=== PATIENT | male | born 1980 | race Caucasian/White ===

== ENCOUNTER 2017-05-04 21:08 | Emergency (ER) | payer OTHER ==
[~2017-05-04] VITALS: Ht 182.9 cm; Wt 100.0 kg
[2017-05-04 21:08] VITALS: BP 154/75
[2017-05-04] MEDS ORDERED: ACET325T9 PO (21:48)
[2017-05-04] MEDS ORDERED: NAPR-683 PO (21:48)
[2017-05-04] MEDS ORDERED: CEPH-264 PO (21:48)
--- NOTE | 2017-05-04 21:48 | PHYS DOC ---
Past History Past Medical History: No Pertinent History Additional Past Surgical Histo: orthoscopic surgery Smoking: Non-smoker Alcohol Use: None Drug Use: None Adult General Chief Complaint Chief Complaint: wound check HPI HPI he is a pleasant 36-year-old male who had orthoscopic right hip surgery within the last week. He is concerned that the lower incision site may be infected. Over the last 4 days he has noted increased redness with localized swelling on the lower incision site. Today while pushing on the wound he expressed a small amount of fluid. He also admits she's had some mild myalgias, low-grade subjective fever and mild headache. He denies any rash, denies any joint pain, denies any shortness of breath, chest pain, abdominal pain. Patient says he utilized hydrogen peroxide to cleanse the wound only to cause himself more discomfort and localized redness. Review of Systems Review of Systems Constitutional: Subjective fevers and chills Eyes: Denies change in visual acuity, redness, or eye pain [] HENT: Denies nasal congestion or sore throat [] Respiratory: Denies cough or shortness of breath [] Cardiovascular: No additional information not addressed in HPI [] GI: Denies abdominal pain, nausea, vomiting, bloody stools or diarrhea [] : Denies dysuria or hematuria [] Musculoskeletal: Denies back pain or joint pain [] Integument: Denies rash or skin lesions does have some localized redness and swelling around the incision site of the lower area of the arthroscopic hip surgery Neurologic: Mild frontal headache not worse of life and sudden onset no focal weakness or sensory changes Endocrine: Denies polyuria or polydipsia [] All other systems were reviewed and found to be within normal limits, except as documented in this note. Current Medications Current Medications Current Medications Medications (Trade) Dose Ordered Sig/Edmar Start Time Stop Time Status Last Admin Dose Admin Cephalexin HCl (Keflex) 500 mg 1X ONCE 05/04/17 21:45 18 21:46 UNV Ibuprofen (Motrin) 400 mg 1X ONCE 05/04/17 21:45 18 21:46 UNV Physical Exam Physical Exam Other vital signs recorded on the chart patient noted to be mildly hypertensive Constitutional: Well developed, well nourished, no acute distress, non-toxic appearance. [][] Skin: Warm, dry, there is a small incision site of the lateral right thigh with mild erythema minimal if any induration minimal soft tissue swelling there is no active discharge from the wound. There is no evidence of abscess around the wound itself. There is no lymphadenitis or soft tissue swelling consistent with an abscess Extremities: No tenderness, no cyanosis, no clubbing, ROM intact, no edema. [] Neurologic: Alert and oriented X 3, normal motor function, normal sensory function, no focal deficits noted. [] Psychologic: Affect normal, judgement normal, mood normal. [] EKG EKG [] Radiology/Procedures Radiology/Procedures [] Course & Med Decision Making Course & Med Decision Making Pertinent Labs and Imaging studies reviewed. (See chart for details) []he presents with a small area of erythema around it well-healing incision site. Based on his description patient may have expressed some serous fluid/ early purulent discharge from the wound edges. There is no obvious abscess that I can drain at this time. Patient exhibits minimal induration and soft tissue swelling. The induration and soft tissue swelling may actually be associated with the hydrogen peroxide use to treat his skin. We talked about proper wound management. Because of his flulike symptoms and sick contacts at home I will screen and flu to ensure that he is not suffering from flu as the cause of his systemic symptoms of mild headache myalgias and low-grade subjective fevers. Patient has no other signs of infection. patient's flu swab Was negative at 10:10 PM patient tolerated oral antibiotics and dressing the wound. Impression: post operative wound infection. no abscess. discharge: I've spoken with the patient and/or caregivers. I've explained the patient's condition, diagnosis and treatment plan based on information available to me at this time. I've answered the patient's and/or caregivers questions and addressed any concerns. The patient and/or caregivers have a good understanding the patient's diagnosis, condition and treatment plan as can be expected at this point. Vital signs have been stabilized. The patient's condition is stable for discharge from the emergency department. The patient will pursue further outpatient evaluation with her primary care provider or other designated consulting physician as outlined in the discharge instructions. Patient and/or caregivers are agreeable to this plan of care and follow-up instructions have been explained in detail. The patient and/or caregivers have received these instructions in written format and expressed understanding of these discharge instructions. The patient and her caregivers are aware that if any significant change in condition or worsening of symptoms should prompt him to immediately return to this of the closest emergency department. If an emergent department is not readily available I would encourage him to call 911. Dragon Disclaimer Dragon Disclaimer This electronic medical record was generated, in whole or in part, using a voice recognition dictation system. Departure Departure: Impression: Primary Impression: Cellulitis Disposition: HOME, SELF-CARE Condition: STABLE Referrals: WAQAS SHAH MD (PCP) Patient Instructions: Cellulitis Additional Instructions: discharge: I've spoken with the patient and/or caregivers. I've explained the patient's condition, diagnosis and treatment plan based on information available to me at this time. I've answered the patient's and/or caregivers questions and addressed any concerns. The patient and/or caregivers have a good understanding the patient's diagnosis, condition and treatment plan as can be expected at this point. Vital signs have been stabilized. The patient's condition is stable for discharge from the emergency department. The patient will pursue further outpatient evaluation with her primary care provider or other designated consulting physician as outlined in the discharge instructions. Patient and/or caregivers are agreeable to this plan of care and follow-up instructions have been explained in detail. The patient and/or caregivers have received these instructions in written format and expressed understanding of these discharge instructions. The patient and her caregivers are aware that if any significant change in condition or worsening of symptoms should prompt him to immediately return to this of the closest emergency department. If an emergent department is not readily available I would encourage him to call 911. Scripts Acetaminophen (TYLENOL) 325 Mg Tablet 1-2 TAB PO QID, #30 TAB 0 Refills Prov: ENRIQUE BOYD MD 05/04/17 Naproxen (NAPROSYN) 500 Mg Tablet 1 TAB PO BID, #20 TAB 1 Refill Prov: ENRIQUE BOYD MD 05/04/17 Cephalexin (KEFLEX) 500 Mg Capsule 500 MG PO QID for 10 Days, #40 CAP Prov: ENRIQUE BOYD MD 05/04/17 ENRIQUE BOYD MD May 04, 2017 21:48
[2017-05-04] MEDS ORDERED: CEPHALEXIN 250 MG CAPSULE PO ONE (22:00)
[2017-05-04] MEDS ORDERED: IBUPROFEN 400 MG TABLET. PO ONE (22:00)
[2017-05-04 22:09] LABS: INFLUENZA A PATIENT NEGATIVE (NEGATIVE); INFLUENZA B PATIENT NEGATIVE (NEGATIVE)
== END 2017-05-04 22:50 | disposition home or self-care (01) ==
LOC: ER 21:08
DX: T18.4XXA Foreign body in colon, initial encounter (principal); L03.115 Cellulitis of right lower limb; M79.1 Myalgia; R50.9 Fever, unspecified; Z98.890 Other specified postprocedural states
CPT/HCPCS: 87804; 99284

== ENCOUNTER 2018-04-16 18:25 | Emergency (ER) | payer OTHER ==
[~2018-04-16] VITALS: Ht 180.3 cm; Wt 86.2 kg
[~2018-04-16 18:25] MED LIST: ACET325T9 PO; CEPH-264 PO; NAPR-683 PO
--- NOTE | 2018-04-16 18:49 | ED.ADGEN ---
Past History Past Medical History: Other Past Surgical History: Other Additional Past Surgical Histo: orthoscopic surgery Smoking: Non-smoker Alcohol Use: Occasionally Drug Use: None Adult General Chief Complaint Chief Complaint headache HPI HPI 37 years old male presented to the emergency department with headache described as a throbbing frontal, radiates to the rest of the scalp associate with nausea and photophobia started at 11 AM gradually, similar to the previous headaches he had, no trauma Review of Systems Review of Systems Constitutional: Denies fever or chills [] Eyes: Denies change in visual acuity, redness, or eye pain [] HENT: Denies nasal congestion or sore throat [] Respiratory: Denies cough or shortness of breath [] Cardiovascular: No additional information not addressed in HPI [] GI: Denies abdominal pain, nausea, vomiting, bloody stools or diarrhea [] : Denies dysuria or hematuria [] Musculoskeletal: Denies back pain or joint pain [] Integument: Denies rash or skin lesions [] Neurologic: Denies focal weakness or sensory changes [] Endocrine: Denies polyuria or polydipsia [] All other systems were reviewed and found to be within normal limits, except as documented in this note. Current Medications Current Medications Current Medications Medications (Trade) Dose Ordered Sig/Edmar Start Time Stop Time Status Last Admin Dose Admin Diphenhydramine HCl (Benadryl) 25 mg 1X ONCE 04/16/18 19:00 04/16/18 19:01 DC 04/16/18 18:59 25 MG Ketorolac Tromethamine (Toradol Im) 60 mg 1X ONCE 04/16/18 19:00 04/16/18 19:01 DC 04/16/18 18:58 60 MG Prochlorperazine Edisylate (Compazine) 10 mg 1X ONCE 04/16/18 19:00 04/16/18 19:01 DC 04/16/18 18:59 10 MG Allergies Allergies Allergies Coded Allergies Type Severity Reaction Last Updated Verified No Known Drug Allergies 05/04/17 No Physical Exam Physical Exam Constitutional: Well developed, well nourished, no acute distress, non-toxic appearance. [] HENT: Normocephalic, atraumatic, bilateral external ears normal, oropharynx moist, no oral exudates, nose normal. [] Eyes: PERRLA, EOMI, conjunctiva normal, no discharge. [] Neck: Normal range of motion, no tenderness, supple, no stridor. [] Cardiovascular:Heart rate regular rhythm, no murmur [] Lungs & Thorax: Bilateral breath sounds clear to auscultation [] Abdomen: Bowel sounds normal, soft, no tenderness, no masses, no pulsatile masses. [] Skin: Warm, dry, no erythema, no rash. [] Back: No tenderness, no CVA tenderness. [] Extremities: No tenderness, no cyanosis, no clubbing, ROM intact, no edema. [] Neurologic: Alert and oriented X 3, normal motor function, normal sensory function, no focal deficits noted. [] Psychologic: Affect normal, judgement normal, mood normal. [] Current Patient Data Vital Signs Vital Signs Date Time Temp Pulse Resp B/P (MAP) Pulse Ox O2 Delivery O2 Flow Rate FiO2 04/16/18 18:27 98.3 62 20 98 EKG EKG [] Radiology/Procedures Radiology/Procedures [] Course & Med Decision Making Course & Med Decision Making feels better , dc home , [] Final Impression Final Impression [] Problems: (1) Headache Qualifiers: Qualified Codes: G44.209 - Tension-type headache, unspecified, not intractable Dragon Disclaimer Dragon Disclaimer This electronic medical record was generated, in whole or in part, using a voice recognition dictation system. MOISE CARMICHAEL MD Apr 16, 2018 18:49
[2018-04-16] MEDS ORDERED: KETOROLAC 60 MG/2 ML VIAL. IM ONE (19:00)
[2018-04-16] MEDS ORDERED: diphenhydrAMINE 50 MG/ML VIAL IM ONE (19:00)
[2018-04-16] MEDS ORDERED: PROCHLORPERAZINE 10 MG/2 ML VIAL. IM ONE (19:00)
[2018-04-16 20:54] VITALS: BP 115/70
== END 2018-04-16 20:05 | disposition home or self-care (01) ==
LOC: ER 18:25
DX: G44.209 Tension-type headache, unspecified, not intractable (principal)
CPT/HCPCS: 96372; 99283; J0780; J1200; J1885